=== PATIENT | female | born 1965 | race Caucasian/White ===

== ENCOUNTER → 2020-06-26 | Outpatient (CLI) | payer OTHER ==
[~2020-06-26] MED LIST: 'XANAX0.25 MG PO; AMLODIPINE BESY10 MG PO; ASPIR-LOW81 MG PO; LOSARTAN POTASS50 MG PO; METOPROLOL50 MG PO; MOTRIN800 MG PO; SERTRALINE50 MG PO
== END | disposition home or self-care (01) ==
LOC: RAD 10:10
PROVIDERS: ATTEND Family Medicine
DX: S22.31XA Fracture of one rib, right side, initial encounter for closed fracture (principal); X58.XXXA Exposure to other specified factors, initial encounter; Y93.89 Activity, other specified; Y92.89 Other specified places as the place of occurrence of the external cause; Y99.8 Other external cause status